=== PATIENT | female | born 1940 | race Caucasian/White ===

== ENCOUNTER 2019-12-30 11:13 | Emergency (ER) | payer MEDICARE, MEDICAID ==
[~2019-12-30] VITALS: Ht 157.5 cm; Wt 81.8 kg
[~2019-12-30 11:13] MED LIST: BENZ-38 PO; FLUT12AE4 IH; HYDR12.522 PO; LEVA15HF4 IH; LISI-642 PO; LOP25T PO; PRED20TA PO
[2019-12-30 11:17] VITALS: BP 130/59
[2019-12-30] MEDS ORDERED: AZIT250T83 PO (13:37)
[2019-12-30] MEDS ORDERED: BENZ-16 PO (13:37)
== END 2019-12-30 13:45 | disposition home or self-care (01) ==
LOC: ER 11:14
DX: J40 Bronchitis, not specified as acute or chronic (principal); I10 Essential (primary) hypertension; J43.9 Emphysema, unspecified; Z87.891 Personal history of nicotine dependence; Z88.8 Allergy status to other drugs, medicaments and biological substances; Z79.2 Long term (current) use of antibiotics; Z79.899 Other long term (current) drug therapy
CPT/HCPCS: 71045; 99283